=== PATIENT | male | born 1990 | race Caucasian/White ===

== ENCOUNTER → 2017-04-10 | Outpatient (CLI) | payer BC | LOC: COL.RAD 08:15 | DX: N50.89 Other specified disorders of the male genital organs (principal) ==

== ENCOUNTER → 2017-04-10 | Outpatient (CLI) | payer BC | LOC: COL.RAD 14:00 | DX: N50.9 Disorder of male genital organs, unspecified (principal) | CPT/HCPCS: Q9967 ==

== ENCOUNTER → 2017-06-27 | Outpatient (CLI) | payer BC | LOC: COL.RAD 14:47 | DX: C62.91 Malignant neoplasm of right testis, unspecified whether descended or undescended (principal) | CPT/HCPCS: Q9967 ==

== ENCOUNTER → 2020-11-18 | Outpatient (CLI) | payer BC | LOC: COL.RAD 07:12 | DX: C62.91 Malignant neoplasm of right testis, unspecified whether descended or undescended (principal); K76.0 Fatty (change of) liver, not elsewhere classified; Z90.79 Acquired absence of other genital organ(s) ==